=== PATIENT | female | born 1970 | race Caucasian/White ===

== ENCOUNTER → 2018-08-13 | Outpatient (REF) | payer MEDICARE, MEDICAID ==
[2018-08-13 19:20] LABS: APPEARANCE, URINE HAZY (CLEAR); BACTERIA, URINE AUTO NEGATIVE (NEGATIVE); BILIRUBIN, URINE AUTO NEGATIVE (NEGATIVE); BLOOD, URINE BLOOD NEGATIVE (NEGATIVE); COLOR, URINE YELLOW (YELLOW); GLUCOSE, URINE (UA) AUTO NEGATIVE (NEGATIVE); KETONE, URINE AUTO NEGATIVE (NEGATIVE); LEUKOCYTE ESTERASE, URINE AUTO 2+ (NEGATIVE); MUCUS, URINE SMALL (NEGATIVE); NITRITE, URINE AUTO NEGATIVE (NEGATIVE); PROTEIN, URINE AUTO NEGATIVE (NEGATIVE); RBC, URINE AUTO 1 /HPF (0-3); SPECIFIC GRAVITY URINE AUTO 1.014 (1.002-1.035); SQUAMOUS EPITHELIAL CELL UR AU 5 /HPF (0-6); UROBILINOGEN, URINE AUTO 0.2 mg/dL (0.0-2.0); WBC, URINE AUTO 1 /HPF (0-3)
== END ==
LOC: M SMT 17:04
PROVIDERS: ATTEND Nurse Practitioner Family
DX: R35.0 Frequency of micturition (principal)
CPT/HCPCS: 51798; 81001; 87086; G0463

== ENCOUNTER → 2021-01-15 | Outpatient (CLI) | payer MEDICARE, MEDICAID ==
[~2021-01-15] MED LIST: PROHANCE 279.3MG/ML 15ML VIAL As Ordered ONE; PROHANCE 279.3MG/ML 5ML VIAL As Ordered ONE
--- NOTE | 2021-01-15 15:22 | REP ---
INDICATION: SCREENING HIGH RISK DENSE BREAST TISSUE. COMPARISON: None. TECHNIQUE: Three Michelle MRI imaging was performed with a dedicated breast coil. Axial, coronal, and sagittal T1 and T2 weighted scans were obtained with and without fat saturation in the usual fashion. The study includes dynamically acquired post gadolinium-enhanced imaging with image subtraction. Maximum intensity projection and multi planar reformation imaging is included as well. This study is interpreted with the aid of [employer], an FDA approved computer aided detection (CAD) software program, on a dedicated breast MRI workstation. The gadolinium enhancement dose is 17 mL of intravenous ProHance. FINDINGS: There is moderate fibroglandular tissue bilaterally. No axillary adenopathy is seen. There is moderate background parenchymal enhancement. There is a subcentimeter cyst at 12 o'clock right breast, and there are few subcentimeter cysts in the lateral left breast. There is no suspicious enhancing mass or morphologic abnormality. IMPRESSION: BI-RADS category 2, benign bilateral breast MRI. Subcentimeter cysts are present. There is no suspicious enhancing mass or morphologic abnormality. <Electronically signed by Son Borja > 01/15/21 1700
== END ==
LOC: M RAD 12:42
PROVIDERS: ATTEND Physician Assistant
DX: Z12.39 Encounter for other screening for malignant neoplasm of breast (principal); N60.01 Solitary cyst of right breast; N60.12 Diffuse cystic mastopathy of left breast
CPT/HCPCS: A9576; C8908